=== PATIENT | female | born 1960 | race Caucasian/White ===

== ENCOUNTER 2021-09-27 10:09 | Emergency (ER) | payer BC ==
[2021-09-27] MEDS ORDERED: Sodium Chloride 0.9% 10 ML Syringe FLUSH PRN (10:37)
[2021-09-27] MEDS ORDERED: Sodium Chloride 0.9% 2.5 ML Syringe FLUSH PRN (10:37)
[2021-09-27] MEDS ORDERED: Labetalol 100 MG/20 ML MDV IVPUSH ONE (10:44)
[2021-09-27 10:57] LABS: CARBON DIOXIDE,CO2 25.9 mmol/L (21.0-32.0); POTASSIUM,K 3.9 mmol/L (3.5-5.1)
[2021-09-27] MEDS ORDERED: Sodium Chloride 0.9% 1,000 ML IV ONE (11:27)
[2021-09-27] MEDS ORDERED: Iopamidol 755 MG/ML 500 ML Multipack Bottle IVPUSH ONE (18:29)
== END 2021-09-27 14:22 | disposition home or self-care (01) ==
LOC: MW.ED 10:09
DX: I10 Essential (primary) hypertension (principal); Z88.6 Allergy status to analgesic agent; Z88.5 Allergy status to narcotic agent; Z88.2 Allergy status to sulfonamides
CPT/HCPCS: 36415; 71045; 71275; 80053; 81001; 83690; 83735; 84484; 85025; 85379; 85610; 93005; 96361; 96374; 99285; J3490; J7030; Q9967